=== PATIENT | male | born 1985 | race Caucasian/White ===

== ENCOUNTER 2021-03-30 12:27 | Emergency (ER) | payer OTHER ==
[~2021-03-30] VITALS: Ht 175.3 cm; Wt 95.0 kg
[2021-03-30] MEDS ORDERED: IOHEXOL 300 MG/ML 75 ML VIAL. IV ONE (13:00)
--- NOTE | 2021-03-30 13:01 | EKG ---
[address] [address] Test Date: 2021-03-30 Test Time: 12:46:43 Pat Name: PADMINI ARIAS Department: Room: Gender: M [employer]otions Executive Producer: KUN : [id number] Requested By: REMEDIOS JOEL Order Number: [id number] Reading MD: Measurements Intervals [place] Rate: 70 P: -6 MA: 130 QRS: 63 QRSD: 94 T: -12 QT: 382 QTc: 415 Interpretive Statements SINUS RHYTHM ST & T ABNORMALITY, CONSIDER INFERIOR ISCHEMIA OR LEFT VENTRICULAR STRAIN ABNORMAL ECG RI6.02 No previous ECG available for comparison
[2021-03-30] MEDS ORDERED: CONTRAST GIVEN. MC PRN (13:15)
[2021-03-30 13:19] LABS: BASO # 0.1 x10^3/uL (0.0-0.2); BASO % 1 % (0-3); EOS # 0.3 x10^3/uL (0.0-0.7); EOS % 3 % (0-3); HEMATOCRIT 47.7 % (39.0-53.0); HEMOGLOBIN 16.6 g/dL (13.0-17.5); LYMPH # 2.5 x10^3/uL (1.0-4.8); LYMPH % 28 % (24-48); MEAN CORPUSCULAR HEMOGLOBIN 33 pg (25-35); MEAN CORPUSCULAR HGB CONC 35 g/dL (31-37); MEAN CORPUSCULAR VOLUME 94 fL (79-100); MONO # 1.1 x10^3/uL (0.0-1.1); MONO % 12 % (0-9); NEUT # 5.1 x10^3uL (1.8-7.7); NEUT % 57 % (31-73); PLATELET COUNT 289 x10^3/uL (140-400); RED BLOOD COUNT 5.05 x10^6/uL (4.30-5.70); RED CELL DISTRIBUTION WIDTH 12.9 % (11.5-14.5)
[2021-03-30 13:28] LABS: CALCIUM 8.5 mg/dL (8.5-10.1); CREATININE 1.1 mg/dL (0.7-1.3); GFR 77.1; POTASSIUM 3.8 mmol/L (3.5-5.1)
[2021-03-30 13:30] LABS: BILIRUBIN,URINE NEG (NEG); CLARITY,URINE CLEAR; COLOR,URINE AMBER; GLUCOSE,URINE NEG (NEG)
[2021-03-30 13:31] LABS: BACTERIA,URINE 0 /HPF (0-FEW); NITRITE,URINE NEG (NEG); RBC,URINE 0 /HPF (0-2); UROBILINOGEN,URINE 0.2 mg/dL (0.2 mg/dL); WBC,URINE 0 /HPF (0-4)
--- NOTE | 2021-03-30 13:40 | RAD ---
CT ABDOMEN W History: upper abd pain n/v Comparison: None. Technique: After administration of intravenous contrast, helical CT of the abdomen was performed. Cor onal and sagittal reconstructions were obtained. One or more of the following dose reduction techniqu es were utilized: Automated exposure control (AEC), Adjustment of mA and/or kV according to patient s ize, Use of iterative reconstruction technique such as ASiR, CT scan done according to ALARA and imag e gently/image wisely Abdomen Findings: The visualized lung bases are clear. Liver measures 20.3 cm craniocaudad. Marked hepatic steatosis. The gallbladder, pancreas, spleen, and bilateral adrenal glands are normal. Symmetric renal enhancement. There is no focal renal mass. There is no hydronephrosis. The visualized loops of small bowel are normal. The visualized loops of large bowel are normal. There is no evidence of bowel obstruction. Appendix is partially visualized and normal caliber where seen. There is no free fluid. There is no mesenteric or retroperitoneal adenopathy. The abdominal aorta is normal in caliber. There is no acute bony abnormality. IMPRESSION: 1. No acute findings. 2. Hepatomegaly and marked hepatic steatosis. Electronically signed by: Phi Bruno MD (03/30/2021 1:38 PM) [id number]
[2021-03-30] MEDS ORDERED: IV NORMAL SALINE 1,000ML 1,000 ML IV ONE (13:45)
[2021-03-30] MEDS ORDERED: ONDANSETRON PF 4 MG/2 ML VIAL. IVP ONE (13:45)
--- NOTE | 2021-03-30 14:04 | PHYS DOC ---
Past History Past Surgical History: Other Additional Past Surgical Histo: chest biopsy General Adult EDM: Chief Complaint: ABDOMINAL PAIN HPI: HPI: Patient is a 35-year-old male being seen in the ER today for epigastric pain x2 months. He is also complaining of bilateral lower abdominal pain x1 week. Patient describes the pain as a burning pain and he rates it 3 out of 10. He has been taking Imodium for his loose stools at home. No pain medication prior to arrival. Patient is also complaining of nausea, heartburn, abdominal distention, vomiting, softer stools with mucus. He denies fevers, dysuria, frequency, urgency blood in his stool. Review of Systems: Review of Systems: 14 body systems of the review of systems have been reviewed. See HPI for pertinent positive and negative responses, otherwise all other systems are negative, nonpertinent or noncontributory Current Medications: Current Meds: Current Medications Medications (Trade) Dose Ordered Sig/Francois Start Time Stop Time Status Last Admin Dose Admin Fentanyl Citrate (Fentanyl 2ml Vial) 50 mcg 1X ONCE 03/30/21 13:45 03/30/21 13:46 DC Info (Do NOT chart on this entry -- for MONITORING) 1 each PRN DAILY PRN 03/30/21 13:15 04/01/21 13:14 Iohexol (Omnipaque 300 Mg/ml) 75 ml 1X ONCE 03/30/21 13:00 03/30/21 13:07 DC 03/30/21 13:26 75 ML Ondansetron HCl (Zofran) 4 mg 1X ONCE 03/30/21 13:45 03/30/21 13:46 DC Sodium Chloride 1,000 ml @ 1,000 mls/hr 1X ONCE 03/30/21 13:45 03/30/21 14:44 Allergies: Allergies: Allergies Coded Allergies Type Severity Reaction Last Updated Verified No Known Drug Allergies 03/30/21 No Physical Exam: PE: Constitutional: Well developed, well nourished, no acute distress, non-toxic appearance. [] HENT: Normocephalic, atraumatic, bilateral external ears normal, oropharynx moist, no oral exudates, nose normal. [] Eyes: PERRL, conjunctiva normal, no discharge. [] Neck: Normal range of motion, no tenderness, supple, no stridor. [] Cardiovascular:Heart rate regular rhythm, no murmur [] Lungs & Thorax: Bilateral breath sounds clear to auscultation [] Abdomen: Bowel sounds normal, soft, mild distention of abdomen, no tenderness, no masses, no pulsatile masses, patient experiencing heartburn/belching. [] Skin: Warm, dry, no erythema, no rash. [] Back: No tenderness, normal range of motion Extremities: No tenderness, no cyanosis, no clubbing, ROM intact, no edema. [] Neurologic: Alert and oriented X 3, normal motor function, normal sensory function, no focal deficits noted. [] Psychologic: Affect normal, judgement normal, mood normal. [] Current Patient Data: Labs: Laboratory Tests Test 03/30/21 12:50 03/30/21 12:54 03/30/21 13:02 Urine Collection Type Unknown Urine Color Araseli Urine Clarity Clear Urine pH 6.0 Urine Specific [place] 1.025 Urine Protein Neg (NEG-TRACE) Urine Glucose (UA) Neg mg/dL (NEG) Urine Ketones (Stick) Neg mg/dL (NEG) Urine Blood Neg (NEG) Urine Nitrite Neg (NEG) Urine Bilirubin Neg (NEG) Urine Urobilinogen Dipstick 0.2 mg/dL (0.2 mg/dL) Urine Leukocyte Esterase Neg (NEG) Urine RBC 0 /HPF (0-2) Urine WBC 0 /HPF (0-4) Urine Bacteria 0 /HPF (0-FEW) Lipase 240 U/L (73-393) White Blood Count 9.0 x10^3/uL (4.0-11.0) Red Blood Count 5.05 x10^6/uL (4.30-5.70) Hemoglobin 16.6 g/dL (13.0-17.5) Hematocrit 47.7 % (39.0-53.0) Mean Corpuscular Volume 94 fL (79-100) Mean Corpuscular Hemoglobin 33 pg (25-35) Mean Corpuscular Hemoglobin Concent 35 g/dL (31-37) Red Cell Distribution Width 12.9 % (11.5-14.5) Platelet Count 289 x10^3/uL (140-400) Neutrophils (%) (Auto) 57 % (31-73) Lymphocytes (%) (Auto) 28 % (24-48) Monocytes (%) (Auto) 12 % (0-9) H Eosinophils (%) (Auto) 3 % (0-3) Basophils (%) (Auto) 1 % (0-3) Neutrophils # (Auto) 5.1 x10^3uL (1.8-7.7) Lymphocytes # (Auto) 2.5 x10^3/uL (1.0-4.8) Monocytes # (Auto) 1.1 x10^3/uL (0.0-1.1) Eosinophils # (Auto) 0.3 x10^3/uL (0.0-0.7) Basophils # (Auto) 0.1 x10^3/uL (0.0-0.2) Sodium Level 139 mmol/L (136-145) Potassium Level 3.8 mmol/L (3.5-5.1) Chloride Level 101 mmol/L (98-107) Carbon Dioxide Level 30 mmol/L (21-32) Anion Gap 8 (6-14) Blood Urea Nitrogen 8 mg/dL (8-26) Creatinine 1.1 mg/dL (0.7-1.3) Estimated GFR (Cockcroft-Gault) 77.1 Glucose Level 111 mg/dL (70-99) H Calcium Level 8.5 mg/dL (8.5-10.1) Troponin I Quantitative < 0.017 ng/mL (0-0.055) Vital Signs: Vital Signs Date Time Temp Pulse Resp B/P (MAP) Pulse Ox O2 Delivery O2 Flow Rate FiO2 03/30/ 12:44 97.5 60 16 165/119 99 Room Air EKG: EKG: EKG performed at 1246 by ER staff shows sinus rhythm, no STEMI as read by Dr. Cueto at 1256 [] Radiology/Procedures: Radiology/Procedures: PROCEDURE: CT ABDOMEN W/CONTRAST CT ABDOMEN W History: upper abd pain n/v Comparison: None. Technique: After administration of intravenous contrast, helical CT of the abdomen was performed. Coronal and sagittal reconstructions were obtained. One or more of the following dose reduction techniques were utilized: Automated exposure control (AEC), Adjustment of mA and/or kV according to patient size, Use of iterative reconstruction technique such as ASiR, CT scan done according to ALARA and image gently/image wisely Abdomen Findings: The visualized lung bases are clear. Liver measures 20.3 cm craniocaudad. Marked hepatic steatosis. The gallbladder, pancreas, spleen, and bilateral adrenal glands are normal. Symmetric renal enhancement. There is no focal renal mass. There is no hydronephrosis. The visualized loops of small bowel are normal. The visualized loops of large bowel are normal. There is no evidence of bowel obstruction. Appendix is partially visualized and normal caliber where seen. There is no free fluid. There is no mesenteric or retroperitoneal adenopathy. The abdominal aorta is normal in caliber. There is no acute bony abnormality. IMPRESSION: 1. No acute findings. 2. Hepatomegaly and marked hepatic steatosis. Electronically signed by: Milla Vickers MD (03/30/2021 1:38 PM) [id number] DICTATED AND SIGNED BY: IMLLA VICKERS MD DATE: 03/30/21 1334 CC: ROHAN PARKS; REMEDIOS JOEL CORPORATE QUALITY ASSURANCE MANAGER ~MTH0 0 Heart Score: C/O Chest Pain: No Risk Factors: Risk Factors: DM, Current or recent (<one month) smoker, HTN, HLP, family history of CAD, obesity. Risk Scores: Score 0 - 3: 2.5% MACE over next 6 weeks - Discharge Home Score 4 - 6: 20.3% MACE over next 6 weeks - Admit for Clinical Observation Score 7 - 10: 72.7% MACE over next 6 weeks - Early Invasive Strategies Course & Med Decision Making: Course & Med Decision Making Pertinent Labs and Imaging studies reviewed. (See chart for details) Patient is a 35-year-old male being seen in the ER today for epigastric pain and bilateral lower abdominal pain. Work-up in the ER consisted of CBC, CMP, lipase, troponin, EKG, CT scan of abdomen. Lab work was unremarkable. CT scan unremarkable. It is likely that patient is experiencing gastritis or GERD. Patient refused IV fluids, IV Zofran, IV pain medication. Patient was given p.o. Zofran and a GI cocktail. I discussed with patient all findings and diagnostic testing as well as the need to follow-up with PCP for further evaluation and treatment or return to the ER if any new or worsening symptoms. Strict return precautions were also discussed at length. Patient voiced understanding and agreement with the plan. Patient is hemodynamically stable at the time of disposition. Louis Disclaimer: Louis Disclaimer: This electronic medical record was generated, in whole or in part, using a voice recognition dictation system. Departure Departure: Impression: Primary Impression: GERD (gastroesophageal reflux disease) Qualified Codes: K21.9 - Gastro-esophageal reflux disease without esophagitis Additional Impression: Epigastric abdominal pain Disposition: HOME / SELF CARE / HOMELESS Condition: GOOD Referrals: ROHAN PARKS (PCP) Patient Instructions: Diet for Gastroesophageal Reflux Disease, Adult Additional Instructions: You were seen in the ER today for epigastric abdominal pain, nausea. Your work- up in the ER was unremarkable and your physical exam was reassuring. You were treated in the ER with nausea medication and a GI cocktail. Please follow-up with your primary care provider tomorrow regarding your ER visit today. If you continue to have reflux symptoms like heartburn and frequent belching like he did in the ER, take the medications that you were previously prescribed by your primary care provider. Attached is information regarding diet changes that you can make to help with your symptoms. If you develop worsening abdominal pain, uncontrollable nausea or vomiting, fevers, blood in your stools or vomit please return to the ER immediately. EMERGENCY DEPARTMENT GENERAL DISCHARGE INSTRUCTIONS Thank you for coming to [facility] (ED) today and trusting us with you care. We trust that you had a positivie experience in our Emergency Department. If you wish to speak to the department management, you may call the director at [phone]. YOUR FOLLOW UP INSTRUCTIONS ARE FOLLOWS: 1. Do you have a private Doctor? If you do not have a private doctor, please ask for a resource list of physicians or clinics that may be able to assist you with follow up care. 2. The Emergency Physician has interpreted your x-rays. The X-Ray specialist will also review them. If there is a change in the findings, you will be notified in 48 hours when at all possible. 3. A lab test or culture has been done, your results will be reviewed and you will be notified if you need a change in treatment. ADDITIONAL INSTRUCTIONS AND INFORMATION: 1. Your care today has been supervised by a physician who is specially trained in emergency care. Many problems require more than one evaluation for a complete diagnosis and treatment. We recommend that you schedule your follow up appointment as recommended to ensure complete treatment of you illness or injury. If you are unable to obtain follow up care and continue to have a problem, or if your condition worsens, we recommend that you return to the ED. 2. We are not able to safely determine your condition over the phone nor are we able to give sound medical advice over the phone. For these safety reasons, if you call for medical advice we will ask you to come to the ED for further evaluation. 3. If you have any questions regarding these discharge instructions please call the ED at [phone]. SAFETY INFORMATION: In the interest of safety, wellness, and injury prevention; we encourage you to wear your sealbelt, if you smoke; quite smoking, and we encourage family to use a protective helmet for bicycling and other sporting events that present an increased risk for head injury. IF YOUR SYMPTOMS WORSEN OR NEW SYMPTOMS DEVELOP, OR YOU HAVE CONCERNS ABOUT YOUR CONDITION; OR IF YOUR CONDITION WORSENS WHILE YOU ARE WAITING FOR YOUR FOLLOW UP APPOINTMENT; EITHER CONTACT YOUR PRIMARY CARE DOCTOR, THE PHYSICIAN WHOSE NAME AND NUMBER YOU WERE [facility], OR RETURN TO THE ED IMMEDIATELY. REMEDIOS JOEL APRN Mar 30, 2021 14:04
[2021-03-30] MEDS ORDERED: ONDANSETRON ODT 4 MG TAB.RAPDIS PO ONE (15:00)
[2021-03-30] MEDS ORDERED: LIDO:MAALOX 1:1 20 ML SINGLE DOSE. PO ONE (15:00)
[2021-03-30 15:11] VITALS: BP 156/100
== END 2021-03-30 15:16 | disposition home or self-care (01) ==
LOC: ER 12:27
DX: K21.9 Gastro-esophageal reflux disease without esophagitis (principal)
CPT/HCPCS: 36415; 74160; 80048; 81001; 83690; 84484; 85025; 93005; 99285; Q9967